=== PATIENT | male | born 1950 | race Caucasian/White ===

== ENCOUNTER 2017-06-13 11:30 | Emergency (ER) | payer OTHER ==
[2017-06-13 11:41] VITALS: RESP 18; TEMP 97.7
[2017-06-13] MEDS ORDERED: AMOXICILLIN/CLAVULANATE POT 875/125 MG TAB PO ONE (12:59)
[2017-06-13] MEDS ORDERED: HYDROCODONE/APAP 5/325 TAB PO ONE ×2 (13:09→14:16)
[2017-06-13] MEDS ORDERED: IBUPROFEN 200 MG TAB PO ONE (13:10)
--- NOTE | 2017-06-13 13:21 | EDPHY ---
H & P Stated Complaint: Bit on LFA by own dog (Mastiff) HPI/ROS: Chief complaint: Dog bite to left forearm History of present illness: This is a 59-year-old male who works as a junk removal specialist who presents to the emergency department for a dog bite to his left forearm. Patient states this morning his 2 dogs, 2 large Mastiffs got into a fight. He broke them up. He was bitten on the left forearm by one of them. He has noted a large wound. There is bruising around the wound. He denies associated signs or symptoms including no abnormal coolness, no paresthesias in the left hand. No other injuries are reported. His tetanus is up-to-date. He did prophylactically take Keflex this morning. - Personal History Current Tetanus Diphtheria and Acellular Pertussis (TDAP): Yes - Medical/Surgical History Hx Asthma: No Hx Chronic Respiratory Disease: No Hx Diabetes: No Hx Cardiac Disease: No Hx Renal Disease: No Hx Cirrhosis: No Hx Alcoholism: No Hx HIV/AIDS: No Hx Splenectomy or Spleen Trauma: No Other PMH: back pin and rods, hyperlipidemia, hypertension, hyperlipidemia, polycythemia, TIA,broken neck - Social History Smoking Status: Never smoked - Physical Exam Exam: General: Alert, nontoxic Skin: There is a 5 cm laceration left forearm, exploration does not reveal foreign bodies Musculoskeletal: Patient is moving all joints in all digits in all manc[place] well left hand. He can move the wrist in all mancilla well although there is pain with extension. He is flexing and extending the elbow well and supinate pronating the forearm well. Vascular: Radial pulses 2+. Capillary refill brisk in the left hand. Neurologic: Sensation appears intact throughout the left upper extremity. Constitutional: Initial Vital Signs Temperature (C) 36.5 C 06/13/17 11:39 Heart Rate 70 06/13/17 11:39 Respiratory Rate 18 06/13/17 11:39 Blood Pressure 129/80 H 06/13/17 11:39 O2 Sat (%) 98 06/13/17 11:39 O2 Delivery Mode Room Air Allergies/Adverse Reactions: No Known Allergies Allergy (Verified 06/13/17 11:38) Home Medications: Medication Instructions Recorded amLODIPine BESYLATE [Norvasc 5 mg 5 mg PO HS 04/03/14 (*)] Amoxicillin/Clavulanate Pot 875 mg PO BID #14 tab 06/13/17 [Augmentin 875 MG TAB (*)] Hydrocodone/Acetaminophen [[place] 1 tab PO Q6 PRN #10 tab 06/13/17 5/325 (*)] Medical Decision Making - Diagnostics Imaging Results: Imaging Impressions Forearm X-Ray 06/13/17 11:46 Impression: 1. Subcutaneous emphysema distal left forearm. 2. Microchip and needle fragment with in the proximal soft tissues of the left forearm. Imaging: I viewed and interpreted images myself Procedures: Procedure: Laceration repair. Verbal consent was obtained from the patient. The 5 cm laceration on the left forearm was anesthetized in the usual fashion. The wound was irrigated, draped and explored to its base with a gloved finger. It does appear at the very least muscle body is involved. The wound was a flap and was pulled over and tension was placed on it using 5 0 Ethilon, 3 simple interrupted sutures, it was not attempted to approximate it as patient will need delayed primary closure or allow it to heal by secondary intention. The procedure was performed by myself. Procedure: Splint placement. A volar arm splint was applied. After application of the splint I returned and re-examined the patient. The splint was adequately immobilizing the joint and distal to the splint the patient's circulation and sensation was intact. ED Course/Re-evaluation: Patient discussed with my primary supervising physician Dr. Mae Galloway. Patient presents to the emergency department left forearm laceration from a dog bite. The arm is neurovascularly intact. Patient's tetanus is up-to-date. He is started on Augmentin. X-ray does not show retained foreign body. The wound is copiously irrigated. Essentially the skin is lacerated with flapping back. It has been pulled over and some tension is been placed on the wound but has not been closed. I have discussed given the high risk for infection patient needs to undergo a delayed primary closure or allow it to heal by secondary intention. Home care is discussed. Further I have contacted [facility] and discussed with them the patient needs follow up with a wound care clinic and Orthopedics for recheck. Return precautions are given to patient. Patient voiced understanding and agreement with plan. Differential Diagnosis: Included but not limited to laceration, foreign body contamination, deep structure injury - Data Points Medications Given: Discontinued Medications Hydrocodone Bitart/Acetaminophen ([place] 5/325) 1 tab PO EDNOW ONE Stop: 06/13/17 13:10 Last Admin: 06/13/17 13:23 Dose: 1 tab Hydrocodone Bitart/Acetaminophen ([place] 5/325) 1 tab PO EDNOW ONE Stop: 06/13/17 14:17 Last Admin: 06/13/17 14:27 Dose: 1 tab Amoxicillin/Clavulanate Potassium (Augmentin 875mg) 875 mg PO EDNOW ONE PRN Reason: Protocol Stop: 06/13/17 13:00 Last Admin: 06/13/17 13:08 Dose: 875 mg Ibuprofen (Motrin) 400 mg PO EDNOW ONE Stop: 06/13/17 13:11 Last Admin: 06/13/17 13:22 Dose: 400 mg Departure - Departure Disposition: Home, Routine, Self-Care Clinical Impression: Dog bite of left arm Qualifiers: Encounter type: initial encounter Qualified Code(s): S41.152A - Open bite of left upper arm, initial encounter; W54.0XXA - Bitten by dog, initial encounter Condition: Good Instructions: Animal Bite (ED), Acute Wounds (ED) Additional Instructions: Please follow-up with orthopedics for further evaluation and care this week Clean your wound 2-3 times daily as discussed You can return to this emergency room in 3-5 days for delayed primary closure as discussed Take all antibiotics as prescribed until finished even if feeling better If symptoms worsen or new symptoms develop return to the emergency room for recheck Referrals: MARIIA OSPINA [Other] - As per Instructions Dimitrios Thornton MD [Medical Doctor] - As per Instructions Prescriptions: Amoxicillin/Clavulanate Pot [Augmentin 875 MG TAB (*)] 875 mg PO BID #14 tab Hydrocodone/Acetaminophen [[place] 5/325 (*)] 1 tab PO Q6 PRN #10 tab PRN Reason: Pain, Moderate
[2017-06-13 15:46] VITALS: BP 118/67; PULSE 68; O2SAT 97
== END 2017-06-13 15:46 | disposition home or self-care (01) ==
PROC: 0HQEXZZ Repair Left Lower Arm Skin, External Approach (ICD-10-PCS; principal; 2017-06-13)
DX: S51.852A Open bite of left forearm, initial encounter (principal); I10 Essential (primary) hypertension; W54.0XXA Bitten by dog, initial encounter; Y99.8 Other external cause status